=== PATIENT | female | born 1990 | race Two or more races ===

== ENCOUNTER 2019-09-25 11:40 | Emergency (ER) | payer MEDICAID ==
[~2019-09-25] VITALS: Ht 157.5 cm; Wt 57.6 kg
[2019-09-25 15:08] VITALS: BP 101/56
== END 2019-09-25 15:38 | disposition home or self-care (01) ==
LOC: ER 11:49
DX: O03.9 Complete or unspecified spontaneous abortion without complication (principal); Z3A.01 Less than 8 weeks gestation of pregnancy
CPT/HCPCS: 36415; 76801; 84702

== ENCOUNTER 2019-10-03 18:03 | Emergency (ER) | payer MEDICAID ==
[~2019-10-03] VITALS: Ht 157.5 cm; Wt 57.6 kg
[2019-10-03 20:50] VITALS: BP 114/64
== END 2019-10-03 21:11 | disposition home or self-care (01) ==
LOC: ER 18:03
DX: O9A.211 Injury, poisoning and certain other consequences of external causes complicating pregnancy, first trimester (principal); Z3A.08 8 weeks gestation of pregnancy
CPT/HCPCS: 36415; 84702

== ENCOUNTER 2024-02-09 10:40 | Emergency (ER) | payer MEDICAID ==
[~2024-02-09] VITALS: Ht 157.5 cm; Wt 61.5 kg
[2024-02-09 11:31] LABS: Basophils # (auto) 0 10 ^3/uL (0-0.2); Basophils % (auto) 0.3 % (0.0-2.0); Eosinophils # (auto) 0.1 10 ^3/uL (0-0.8); Eosinophils % (auto) 0.7 % (0.0-7.0); Hematocrit 36.7 % (36.0-46.0); Hemoglobin 12.6 g/dL (12.2-16.2); Lymphocytes # (auto) 1.9 10 ^3/uL (0.4-5.4); Lymphocytes % (auto) 23.4 % (10.0-50.0); Mean Corpuscular Hemoglobin 29.5 pg (28.0-32.0); Mean Corpuscular Hgb Conc. 34.3 g/dL (32.0-36.0); Monocytes # (auto) 0.5 10 ^3/uL (0-1.3); Monocytes % (auto) 6.7 % (0.0-12.0); Neutrophils # (auto) 5.6 10 ^3/uL (1.6-8.6); Neutrophils % (auto) 68.9 % (37.0-80.0); Red Blood Cells 4.27 10^6/uL (4.0-5.20); White Blood Cell 8.1 10^3/uL (4.4-10.8)
[2024-02-09 11:59] LABS: Urine Bacteria NONE SEEN /hpf (None Seen); Urine Blood Negative /uL (Negative); Urine Clarity HAZY (Clear); Urine Color Yellow (Yellow); Urine Mucus FEW (None Seen); Urine Protein, UAD Negative (Negative); Urine Specific Gravity 1.018 (1.001-1.035); Urine Urobilinogen Normal (Negative); Urine WBC 3 /hpf (0 - 5)
[2024-02-09 12:00] LABS: Alanine Aminotransferase 18 U/L (7-40); Albumin 4.2 g/dL (3.2-4.8); Alkaline Phosphatase 85 U/L (46-116); Anion Gap 8 (5-15); Aspartate Aminotransferase 12 U/L (13-40); BUN/Creatinine Ratio 10.9 (10.0-20.0); Blood Urea Nitrogen 6 mg/dL (9-23); Calcium 9.7 mg/dL (8.7-10.4); Carbon Dioxide 25 mmol/L (20-30); Chloride 103 mmol/L (98-107); Glucose 83 mg/dL (74-106); Lipase 35 U/L (12-53); Sodium 136 mmol/L (136-145)
[2024-02-09 12:01] LABS: Bilirubin, Total 0.4 mg/dL (0.2-1.0)
[2024-02-09] MEDS ORDERED: ZOFR4T PO (12:22)
[2024-02-09] MEDS ORDERED: NITR-87 PO (12:22)
[2024-02-09 12:43] VITALS: BP 111/68; PULSE 80; RESP 19; TEMP 98.2; O2SAT 96
== END 2024-02-09 12:44 | disposition home or self-care (01) ==
LOC: ER 10:40
DX: O20.0 Threatened abortion (principal); R10.2 Pelvic and perineal pain; O23.41 Unspecified infection of urinary tract in pregnancy, first trimester; N39.0 Urinary tract infection, site not specified; Z3A.11 11 weeks gestation of pregnancy
CPT/HCPCS: 36415; 76705; 76801; 80053; 81001; 83690; 84702; 85025

== ENCOUNTER 2024-04-18 08:14 | Emergency (ER) | payer MEDICAID ==
[~2024-04-18] VITALS: Ht 157.5 cm; Wt 62.3 kg
[~2024-04-18 08:14] MED LIST: NITR-87 PO; ZOFR4T PO
[2024-04-18] MEDS ORDERED: DOCU-94 PO (12:27)
[2024-04-18] MEDS ORDERED: [UNRECOGNIZED DRUG - CODE] EX (12:27)
[2024-04-18 13:24] VITALS: BP 102/54; PULSE 85; RESP 20; TEMP 98.4; O2SAT 97
== END 2024-04-18 13:26 | disposition home or self-care (01) ==
LOC: ER 08:14
DX: O22.42 Hemorrhoids in pregnancy, second trimester (principal); O26.892 Other specified pregnancy related conditions, second trimester; K59.00 Constipation, unspecified; Z3A.20 20 weeks gestation of pregnancy; Z87.442 Personal history of urinary calculi
CPT/HCPCS: 76805

== ENCOUNTER → 2024-06-05 | Outpatient (CLI) | payer MEDICAID ==
[~2024-06-05] MED LIST changes: +DOCU-94 PO; +[UNRECOGNIZED DRUG - CODE] EX
[2024-06-05 10:36] LABS: Basophils # (auto) 0 10 ^3/uL (0-0.2); Basophils % (auto) 0.4 % (0.0-2.0); Eosinophils # (auto) 0.1 10 ^3/uL (0-0.8); Eosinophils % (auto) 0.8 % (0.0-7.0); Hematocrit 31.7 % (36.0-46.0); Lymphocytes % (auto) 20.5 % (10.0-50.0); Mean Corpuscular Hemoglobin 29.8 pg (28.0-32.0); Mean Corpuscular Hgb Conc. 34.7 g/dL (32.0-36.0); Monocytes # (auto) 0.7 10 ^3/uL (0-1.3); Monocytes % (auto) 7.8 % (0.0-12.0); Neutrophils # (auto) 6.7 10 ^3/uL (1.6-8.6); Neutrophils % (auto) 70.5 % (37.0-80.0); Nucleated Red Blood Cells % 0.1 %; Red Blood Cells 3.69 10^6/uL (4.0-5.20); Red Cell Distribution Width 13.2 % (11.8-14.3); White Blood Cell 9.6 10^3/uL (4.4-10.8)
[2024-06-05 11:00] LABS: Alanine Aminotransferase 17 U/L (7-40); Albumin 3.9 g/dL (3.2-4.8); Alkaline Phosphatase 99 U/L (46-116); Anion Gap 6 (5-15); Aspartate Aminotransferase 14 U/L (13-40); BUN/Creatinine Ratio 14.3 (10.0-20.0); Blood Urea Nitrogen 7 mg/dL (9-23); Calcium 9.1 mg/dL (8.7-10.4); Carbon Dioxide 24 mmol/L (20-30); Chloride 106 mmol/L (98-107); Glucose 85 mg/dL (74-106); Potassium 4.1 mmol/L (3.5-5.1); Sodium 136 mmol/L (136-145)
[2024-06-05 11:01] LABS: Bilirubin, Total 0.3 mg/dL (0.2-1.0); Total Protein 6.9 g/dL (5.7-8.2)
[2024-06-06 07:07] LABS: RPR Non Reactive (Non Reactive)
[2024-06-06 13:07] LABS: Chlamydia Trachomatis, NAA Negative (Negative); Neisseria gonorrhoeae, NAA Negative (Negative)
== END | disposition home or self-care (01) ==
LOC: LAB 10:00
PROVIDERS: ATTEND Obstetrics & Gynecology
DX: Z34.80 Encounter for supervision of other normal pregnancy, unspecified trimester (principal); Z3A.00 Weeks of gestation of pregnancy not specified
CPT/HCPCS: 36415; 80053; 82951; 83036; 85025; 86592; 86850; 86900; 86901

== ENCOUNTER 2024-08-16 02:39 | Inpatient (IN) | payer MEDICAID ==
[~2024-08-16] VITALS: Ht 157.5 cm; Wt 63.5 kg
[2024-08-16] MEDS ORDERED: LIDOCAINE 2%HCL (LOCAL ANESTH.) INJ 20ML MDV IJ PRN (04:30)
[2024-08-16] MEDS ORDERED: BUTORPHANOL TARTRATE 2 MG/1 ML VIAL IV PRN ×2 (04:30)
[2024-08-16 05:05] LABS: Basophils # (auto) 0 10 ^3/uL (0-0.2); Basophils % (auto) 0.2 % (0.0-2.0); Eosinophils # (auto) 0 10 ^3/uL (0-0.8); Eosinophils % (auto) 0.2 % (0.0-7.0); Hematocrit 34.3 % (36.0-46.0); Hemoglobin 11.8 g/dL (12.2-16.2); Lymphocytes # (auto) 1.6 10 ^3/uL (0.4-5.4); Lymphocytes % (auto) 16.5 % (10.0-50.0); Mean Corpuscular Hemoglobin 29.6 pg (28.0-32.0); Mean Corpuscular Hgb Conc. 34.4 g/dL (32.0-36.0); Monocytes # (auto) 0.7 10 ^3/uL (0-1.3); Monocytes % (auto) 6.8 % (0.0-12.0); Neutrophils # (auto) 7.4 10 ^3/uL (1.6-8.6); Neutrophils % (auto) 76.3 % (37.0-80.0); Platelet Count (auto) 283 10^3/uL (140-450); Red Blood Cells 3.99 10^6/uL (4.0-5.20); Red Cell Distribution Width 15.8 % (11.8-14.3); White Blood Cell 9.7 10^3/uL (4.4-10.8)
[2024-08-16 05:10] LABS: Urine Amorphous Crystal FEW /hpf (None Seen); Urine Bacteria FEW /hpf (None Seen); Urine Blood Negative /uL (Negative); Urine Clarity Turbid (Clear); Urine Color Light-Yellow (Yellow); Urine Protein, UAD Negative (Negative); Urine Specific Gravity 1.009 (1.001-1.035); Urine Urobilinogen Normal (Negative); Urine WBC 4 /hpf (0 - 5); Urine pH 6.5 (5.0-9.0)
[2024-08-16] MEDS ORDERED: CARBOPROST TROMETHAMINE 250 MCG/1ML VIAL IM ONE (05:15)
[2024-08-16] MEDS ORDERED: METHYLERGONOVINE MALEATE 0.2 MG/ML AMP IM ONE (05:15)
[2024-08-16 05:19] LABS: INR 0.97 (0.9-1.15); Partial Thromboplastin Time 23.6 SEC (24.5-34.5); Prothrombin Time 10.3 sec (9.3-11.8)
[2024-08-16 05:23] LABS: Alanine Aminotransferase 66 U/L (7-40); Albumin 4.1 g/dL (3.2-4.8); Alkaline Phosphatase 275 U/L (46-116); Anion Gap 10 (5-15); Aspartate Aminotransferase 43 U/L (13-40); BUN/Creatinine Ratio 13.6 (10.0-20.0); Bilirubin, Total 0.5 mg/dL (0.2-1.0); Blood Urea Nitrogen 9 mg/dL (9-23); Calcium 9.4 mg/dL (8.7-10.4); Carbon Dioxide 21 mmol/L (20-30); Chloride 105 mmol/L (98-107); Glucose 86 mg/dL (74-106); Potassium 3.7 mmol/L (3.5-5.1); Sodium 136 mmol/L (136-145); Total Protein 7.1 g/dL (5.7-8.2)
[2024-08-16] MEDS: ONDANSETRON ODT 4 MG TAB PO PRN (05:26)
[2024-08-16 05:28] LABS: Amphetamine Screen, Urine Neg (NEGATIVE); Barbiturate Scree,Urine Neg (NEGATIVE); Benzodiazephine Screen, Urine Neg (NEGATIVE); Cannabinoid Screen, Urine Neg (NEGATIVE); Cocaine Screen, Urine Neg (NEGATIVE); Opiate Scree,Urine Neg (NEGATIVE); Phencyclidine Screen, Urine Neg (NEGATIVE)
[2024-08-16] MEDS ORDERED: PENICILLIN G POT 5MIL/D5 50ML 50 ML IV ONE (05:45)
[2024-08-16] MEDS: PHISODERM TOP SOLN 240ML BTL TOP PRN (06:30)
[2024-08-16] MEDS: LACT. RINGERS/OXYTOCIN 20UNITS 500 ML IV ONE ×2 (06:30)
[2024-08-16] MEDS: WITCH HAZEL-GLYCERIN PAD TOP PRN (06:31)
[2024-08-16] MEDS: DERMOPLAST 60ML BOTTLE TOP PRN (06:31)
[2024-08-16] MEDS: LACTATED RINGER'S 1,000 ML IV SCH (06:32)
[2024-08-16] MEDS ORDERED: ACETAMINOPHEN 325 MG TAB PO PRN (06:45)
[2024-08-16] MEDS ORDERED: ONDANSETRON ODT 4 MG TAB PO PRN (06:45)
[2024-08-16] MEDS: IBUPROFEN 600 MG TAB PO PRN (07:54)
[2024-08-16] MEDS ORDERED: PENICILLIN G POTASSIUM 2,500,000 UNITS in D5W 5% 50 ML IV SCH (10:00)
[2024-08-16 11:00] VITALS: BP 110/73; PULSE 58; RESP 18; TEMP 98.7; O2SAT 97
[2024-08-16 15:00] VITALS: BP 108/70; PULSE 56; RESP 18; TEMP 98.6; O2SAT 98
[2024-08-16 18:30] VITALS: BP 107/70; PULSE 59; RESP 16; TEMP 99.1; O2SAT 98
[2024-08-16] MEDS: DOCUSATE SOD 100 MG CAP PO PRN (21:33)
[2024-08-16 22:52] VITALS: BP 106/71; PULSE 68; RESP 16; TEMP 97.9; O2SAT 97
[2024-08-17] MEDS ORDERED: IBU600T PO (01:52)
[2024-08-17] MEDS ORDERED: PRENCAP69 PO (01:52)
[2024-08-17] MEDS ORDERED: DOCU-94 PO (01:52)
[2024-08-17] MEDS ORDERED: [UNRECOGNIZED DRUG - CODE] EX (01:52)
[2024-08-17] MEDS: RHO (D) IMMUNE GLOBULIN 300 MCG INJ IM ONE (02:56)
[2024-08-17 03:20] VITALS: BP 104/62; PULSE 64; RESP 16; TEMP 98.9; O2SAT 97
[2024-08-17] MEDS ORDERED: MEASLES, MUMPS & RUBELLA VAC(MMRII) 0.5ML SC ONE (07:00)
[2024-08-17 07:07] LABS: RPR Non Reactive (Non Reactive)
[2024-08-17 07:30] VITALS: BP 104/68; PULSE 71; RESP 16; TEMP 98.7; O2SAT 98
[2024-08-17 07:47] LABS: Hematocrit 31.8 % (36.0-46.0); Hemoglobin 10.6 g/dL (12.2-16.2); Mean Corpuscular Hemoglobin 29.4 pg (28.0-32.0); Mean Corpuscular Hgb Conc. 33.4 g/dL (32.0-36.0); Mean Corpuscular Volume 88.1 fL (80.0-100.0); Platelet Count (auto) 284 10^3/uL (140-450); Red Blood Cells 3.61 10^6/uL (4.0-5.20); Red Cell Distribution Width 15.9 % (11.8-14.3); White Blood Cell 12.7 10^3/uL (4.4-10.8)
[2024-08-17 07:51] LABS: Basophils % (manual) 0 (0.0-2.0); Blast Cells 0; Eosinophils % (manual) 0 (0-7); Metamyelocytes % 0; Myelocytes % 0; Promyelocytes % 0; Reactive Lymphocytes 0
[2024-08-17 08:41] LABS: Band Neutrophils % (manual) 9; Lymphocytes % (manual) 27 (10.0-50.0); Monocytes % (manual) 5 (0-12); Platelet Estimate Adequate
[2024-08-17 10:46] VITALS: BP 107/68; PULSE 69; RESP 16; TEMP 99.1
[2024-08-17 14:20] VITALS: BP 112/68; PULSE 88; RESP 18; TEMP 98.3; O2SAT 98
== END 2024-08-17 16:53 | disposition home or self-care (01) | DRG 560 ==
LOC: LDRP 02:39 → OBSVTOIN 04:19 → LDRP 08:31
PROVIDERS: ADMIT Nurse Practitioner Women's Health; ATTEND Nurse Practitioner Women's Health
PROC: 10E0XZZ Delivery of Products of Conception, External Approach (ICD-10-PCS; principal; 2024-08-16)
DX: O77.0 Labor and delivery complicated by meconium in amniotic fluid (principal); Z37.0 Single live birth; R71.0 Precipitous drop in hematocrit; O69.81X0 Labor and delivery complicated by cord around neck, without compression, not applicable or unspecified; Z3A.38 38 weeks gestation of pregnancy
CPT/HCPCS: 36415; 59025; 59409; 80053; 80307; 81001; 81002; 85007; 85025; 85027; 85610; 85730; 86592; 86803; 86850; 86870; 86900; 86901; 90384; 94760; 96360; 96361; 96365; 96366; 96372; G0378; J7060

== ENCOUNTER 2024-09-30 15:12 | Emergency (ER) | payer MEDICAID ==
[~2024-09-30] VITALS: Ht 157.5 cm; Wt 59.6 kg
[~2024-09-30 15:12] MED LIST changes: +IBU600T PO; -NITR-87 PO; +PRENCAP69 PO; -ZOFR4T PO
[2024-09-30 15:51] LABS: Basophils # (auto) 0.1 10 ^3/uL (0-0.2); Basophils % (auto) 0.6 % (0.0-2.0); Eosinophils # (auto) 0 10 ^3/uL (0-0.8); Eosinophils % (auto) 0.1 % (0.0-7.0); Hematocrit 39.7 % (36.0-46.0); Hemoglobin 13.6 g/dL (12.2-16.2); Lymphocytes # (auto) 1.4 10 ^3/uL (0.4-5.4); Lymphocytes % (auto) 7.7 % (10.0-50.0); Mean Corpuscular Hemoglobin 29.1 pg (28.0-32.0); Mean Corpuscular Hgb Conc. 34.2 g/dL (32.0-36.0); Mean Corpuscular Volume 85.2 fL (80.0-100.0); Monocytes # (auto) 0.9 10 ^3/uL (0-1.3); Monocytes % (auto) 4.6 % (0.0-12.0); Platelet Count (auto) 410 10^3/uL (140-450); Red Blood Cells 4.66 10^6/uL (4.0-5.20); Red Cell Distribution Width 15.8 % (11.8-14.3); White Blood Cell 18.4 10^3/uL (4.4-10.8)
[2024-09-30 15:55] LABS: Chloride 104 mmol/L (98-107); Potassium 3.7 mmol/L (3.5-5.1); Sodium 137 mmol/L (136-145)
[2024-09-30 15:56] LABS: Anion Gap 5 (5-15); Calcium 9.9 mg/dL (8.7-10.4); Carbon Dioxide 28 mmol/L (20-31)
[2024-09-30 16:01] LABS: BUN/Creatinine Ratio 16.4 (10.0-20.0); Blood Urea Nitrogen 11 mg/dL (9-23); Glucose 102 mg/dL (74-106)
[2024-09-30 16:43] VITALS: BP 129/69; PULSE 91; RESP 18; TEMP 98.8; O2SAT 98
--- NOTE | 2024-09-30 16:45 | ED.PDOC ---
GI ASSESSMENT HPI Comments A 34 YEAR OLD FEMALE PRESENTS TO THE ED WITH COMPLAINT OF MIDDLE ABDOMINAL PAIN WITH NAUSEA AND VOMITING. PATIENT STATES SHE HAS BEEN EXPERIENCING MIDDLE ABDOMINAL PAIN WITH NAUSEA AND VOMITING THAT STARTED TODAY. PATIENT DENIES FEVER, CHILLS, SHORTNESS OF BREATH, CHEST PAIN, HEADACHE, OR OTHER COMPLAINTS. NO OTHER SYMPTOMS OR MODIFYING FACTORS AT THIS TIME. PATIENT IS ALERT, ORIENTED X 4, AND HAS STEADY GAIT. Chief Complaint: Abdominal Pain Time Seen by MD: 15:32 Primary Care Provider: UNKNOWN Reviewed Notes: Nurses Notes, Medications, Allergies Allergies: Coded Allergies: NO KNOWN ALLERGIES (Unverified , 09/25/19) Home Meds Active Scripts Ibuprofen (Ibuprofen) 600 Mg Tab, 1 TAB PO TID, #20 TAB Prov:ZAID GEE 09/30/24 Sulfamethoxazole W/Trimethopri (Bactrim Ds Tablet) 1 Tab Tb, 1 TAB PO BID for 7 Days, #14 TAB Prov:ZAID GEE 09/30/24 Ondansetron Odt 4MG Tab (ZOFRAN PO) 4 Mg Tb, 4 MG PO BID, #14 TAB ODT TAB-DISSOLVE IN MOUTH, THEN SWALLOW Prov:ZAID GEE 09/30/24 Mv & Min W/Fe Polysac (VITAFOL-ONE) Cap, 1 CAP PO DAILY, #90 CAP 3 Refills Prov:SWETA MATIAS [facility] 08/17/24 Ibuprofen Micronized (MOTRIN TABLET) 600 Mg Tb, 600 MG PO Q6HP PRN for 20 Days, #80 TAB Prov:SWETA MATIAS [facility] 08/17/24 Witch Hermila (Hamamelis Virgini (Preparation H For Women) 20 % Pad, 20 % EX BID PRN for 30 Days, #60 PAD Prov:SWETA MATIAS [facility] 08/17/24 Docusate Sodium (Colace) 100 Mg Cap, 1 CAP PO BID PRN for 30 Days, #60 CAP 2 Refills Prov:SWETA MATIAS [facility] 08/17/24 Information Source: Patient Mode of Arrival: Ambulatory Timing: Hours Duration: Since onset, Hours Prehospital treatment: None Quality: Aching, Cramping Vomitus: Food Particles Stool: Normal Severity: Moderate Recent: None Recent Hx of: None Pain Location: Suprapubic, Other (MIDDLE ABDOMINAL PAIN) Modifying Factors: Nothing Associated sign and symptoms: Nausea, Vomiting, Abdominal Pain Past Medical History PAST MEDICAL HISTORY: Kidney Stones Surgical History: Denies all surgeries HOME INSURANCE AGENT History: No Pertinent HOME INSURANCE AGENT History Family History Family History: Reviewed,noncontributory to illness, Family hx of HTN Social History Smoker: Non-Smoker Alcohol: Occasionally Drugs: Denies Drug Use Lives In: Home Constitutional: reports: others (ANXIOUS ); denies: chills, diaphoresis, fatigue, fever, malaise, sweats, weakness EENTM: denies: blurred vision, double vision, ear bleeding, ear discharge, ear drainage, ear pain, ear ringing, eye pain, eye redness, hearing loss, mouth pain, mouth swelling, nasal discharge, nose bleeding, nose congestion, nose pain, photophobia, tearing, throat pain, throat swelling, voice changes, others Respiratory: denies: cough, hemoptysis, orthopnea, SOB at rest, shortness of breath, SOB with excertion, stridor, wheezing, others Cardiovascular: denies: chest pain, dizzy spells, diaphoresis, Dyspnea on exertion, edema, irregular heart beat, left arm pain, lightheadedness, palpitations, PND, syncope, others Gastrointestinal: reports: abdominal pain, nausea, vomiting; denies: abdomen distended, blood streaked bowels, constipated, diarrhea, dysphagia, difficulty swallowing, hematemesis, melena, poor appetite, poor fluid intake, rectal bleeding, rectal pain, others Genitourinary: denies: abnormal vagina bleeding, burning, dyspareunia, dysuria, flank pain, frequency, hematuria, incontinence, pain, , vagina discharge, urgency, others Neurological: denies: dizziness, fainting, headache, left sided numbness, left sided weakness, numbness, paresthesia, pre-existing deficit, right sided numbness, right sided weakness, seizure, speech problems, tingling, tremors, weakness, others Musculoskeletal: denies: back pain, gout, joint pain, joint swelling, muscle pain, muscle stiffness, neck pain, others Integumetry: denies: bruises, change in color, change in hair/nails, dryness, laceration, lesions, lumps, rash, wounds, others Allergic/Immunocompromised: denies: Difficulty Healing, Frequent Infections, Hives, Itching, others Hematologic/Lymphatic: denies: anemia, blood clots, easy bleeding, easy bruising, swollen glands, others Endocrine: denies: excessive hunger, excessive sweating, excessive thirst, excessive urination, flushing, intolerance to cold, intolerance to heat, unexplained weight gain, unexplained weight loss, others Psychiatric: denies: anxiety, bipolar disorder, depression, hopeless, panic disorder, schizophrenia, sleepless, suicidal, others All Other Systems: Reviewed and Negative Physical Exam General Appearance: Mild Distress, Normal, Other (ANXIOUS ) HEENT: Normal ENT Inspection, PERRL/EOMI, Pharynx Normal, TMs Normal Neck: Full Range of Motion, Non-Tender, Normal, Normal Inspection Respiratory: Chest Non-Tender, Lungs Clear, No Accessory Muscle Use, No Respiratory Distress, Normal Breath Sounds Cardiovascular: No Edema, No JVD, No Murmur, No Gallop, Normal Peripheral Pulses, Regular Rate/Rhythm Breast Exam: Deferred Gastrointestinal: LLQ, No Organomegaly, No Pulsatile Mass, Normal Bowel Sounds, RLQ, Soft, Tenderness (LOWER ABD, NO GUARDING AND REBOUND TENDERNESS. ) Genitalia: Deferred Pelvic: Deferred, Normal External Exam, Tender Uterus Rectal: Deferred Extremities: No calf tenderness, Normal capillary refill, Normal inspection, Normal range of motion, Non-tender, No pedal edema Musculoskeletal : Apperance: Normal Neurologic: Alert, sweet potato disintegrator II-XII nml as Tested, No Motor Deficits, Normal Affect, Normal Mood, No Sensory Deficits Cerebellar Function: Normal Reflexes: Normal Skin: Dry, Normal Color, Warm Peripheral Pulses: 2+ carotid (R), 2+ carotid (L) Lymphatic: No Adenopathy Was a procedure done? Was a procedure done?: No GI differential Dx Differential Diagnosis: Appendicitis, Bowel Obstruction, Diverticular disease, Gastritis/PUD, UTI, Urolithiasis, Dehydration, Food Poisoning, Viral, Kidney Stone X-Ray, Labs, Meds, VS Vital Signs Date Time Temp Pulse Resp B/P (MAP) Pulse Ox O2 Delivery O2 Flow Rate FiO2 09/30/24 16:43 91 18 98 Room Air 09/30/24 16:43 98.8 91 18 129/69 (89) 98 98.8 09/30/24 16:06 98.8 91 18 129/69 (89) 98 Lab Test 09/30/24 16:50 09/30/24 15:42 Range/Units Urine Color Light-yellow Yellow Urine Clarity Turbid H Clear Urine pH 7.5 5.0-9.0 Urine Specific [place] 1.023 1.001-1.035 Urine Protein Trace H Negative Urine Ketones 2+ H Negative Urine Blood Negative Negative /uL Urine Nitrite Negative Negative Urine Bilirubin Negative Negative Urine Urobilinogen Normal Negative mg/dL Urine Leukocyte Esterase 3+ Negative /uL Urine RBC 3 0 - 4 /hpf Urine WBC 25 0 - 5 /hpf Urine Squamous Epithelial Cells Mod <5 /hpf Urine Amorphous Crystals Few None Seen /hpf Urine Bacteria Few H None Seen /hpf Urine Mucus Few None Seen Urine Glucose Normal Normal mg/dL Urine Test Negative Negative White Blood Count 18.4 H 4.4-10.8 10^3/uL Red Blood Count 4.66 4.0-5.20 10^6/uL Hemoglobin 13.6 12.2-16.2 g/dL Hematocrit 39.7 36.0-46.0 % Mean Corpuscular Volume 85.2 80.0-100.0 fL Mean Corpuscular Hemoglobin 29.1 28.0-32.0 pg Mean Corpuscular Hemoglobin Concent 34.2 32.0-36.0 g/dL Red Cell Distribution Width 15.8 H 11.8-14.3 % Platelet Count 410 140-450 10^3/uL Mean Platelet Volume 7.4 6.9-10.8 fL Neutrophils (%) (Auto) 87.0 H 37.0-80.0 % Lymphocytes (%) (Auto) 7.7 L 10.0-50.0 % Monocytes (%) (Auto) 4.6 0.0-12.0 % Eosinophils (%) (Auto) 0.1 0.0-7.0 % Basophils (%) (Auto) 0.6 0.0-2.0 % Neutrophils # (Auto) 16.0 H 1.6-8.6 10 ^3/uL Lymphocytes # (Auto) 1.4 0.4-5.4 10 ^3/uL Monocytes # (Auto) 0.9 0-1.3 10 ^3/uL Eosinophils # (Auto) 0 0-0.8 10 ^3/uL Basophils # (Auto) 0.1 0-0.2 10 ^3/uL Nucleated Red Blood Cells 0.0 % Sodium Level 137 136-145 mmol/L Potassium Level 3.7 3.5-5.1 mmol/L Chloride Level 104 98-107 mmol/L Carbon Dioxide Level 28 20-31 mmol/L Anion Gap 5 5-15 Blood Urea Nitrogen 11 9-23 mg/dL Creatinine 0.67 0.550-1.02 mg/dL Glomerular Filtration Rate Calc 118 >90 mL/min BUN/Creatinine Ratio 16.4 10.0-20.0 Serum Glucose 102 74-106 mg/dL Calcium Level 9.9 8.7-10.4 mg/dL Current Medications Medications (Trade) Dose Ordered Sig/Jorge Luis Route Start Time Stop Time Status Last Admin Sodium Chloride 1,000 ml @ 1,000 mls/hr Q1H ONCE IV 09/30/24 16:45 09/30/24 17:44 DC 09/30/24 16:54 Ondansetron HCl (Zofran) 4 mg ONCE ONCE IV 09/30/24 16:45 09/30/24 16:46 DC 09/30/24 16:53 Ceftriaxone Sodium 50 ml @ 100 mls/hr ONCE ONCE IV 09/30/24 17:45 09/30/24 18:14 DC 09/30/24 17:55 Exam: CT CT AB PEL WITH IV CON ONLY History: MID ABD PAIN WITH N/V AND CRAMPING Comparison Study: None available at time of dictation. TECHNIQUE: Multidetector CT of the abdomen was performed from lung bases to pubic symphysis. Imaging was performed without IV contrast. Axial, coronal and sagittal multiplanar reformats were obtained from the axial data set by the technologist. Radiation Dose Information: CT Dose: CTDI volume is 9.61 mGy. Dose-length product is 450.6 mGy*cm Omnipaque 300: 100 mL FINDINGS: Evaluation of solid organs is limited due to lack of intravenous contrast use. Findings: Lung Bases: No acute or significant lung base finding. Normal heart size. No pleural or pericardial effusion. Liver: The liver is normal in size. No focal lesions. Gallbladder and Biliary Tree: Unremarkable Spleen: Unremarkable Pancreas: The pancreas is grossly normal in appearance. Adrenal Glands: Unremarkable Kidneys: Kidneys are grossly normal without calculi or hydronephrosis. Bladder: Grossly unremarkable for degree of distention. Bowel: The stomach is grossly normal in appearance. Small bowel and colon are normal in caliber and distribution. The appendix is not visualized; however, no secondary findings of acute appendicitis identified. Ascites: Absent Lymphadenopathy: No mesenteric, retroperitoneal or periportal lymphadenopathy. Abdominal Wall and Mesentery: Unremarkable. Vasculature: The visualized abdominal aorta is normal in size and caliber. Evaluation of abdominal and pelvic vessels is limited due to lack of intravenous contrast. Pelvic Organs: Uterus measures 10.3 x 5.1 cm. There is no free fluid. There is fluid in the endometrial canal. Musculoskeletal: No aggressive focal bony lesions, acute fractures or dislocation. Soft tissues: Unremarkable IMPRESSION: 1. Uterus is enlarged consistent with uterus. 2. There is fluid in the endometrial canal. 3. There is no free air or fluid in the pelvis. Radiation optimization: All CT scans at this facility use at least one of these dose optimization techniques: automated exposure control mA and/or kV adjustment per patient size (includes targeted exams where dose is matched to clinical indication) or iterative reconstruction. HS:Y ATED BY: EVE PIRES Jr., DO DICTATED DATE/TIME: 09/30/241745 SIGNED BY: EVE PIRES Jr., SIGNED DATE/TIME: 09/30/241745 CC: X-Ray, Labs, Meds, VS Comment LABS ORDERED: CBC, BMP, UA REVIEWED AND INTERPRETED RESULTS: WBC 18.4, KET 2+, LEUKO 3+ TREATMENT: NS 1 L IV, ZOFRAN 4 MG IV , ROCEPHIN 1 G IV, TORADOL 30MG IVP Images Reviewed?: Images reviewed and evaluated by me Time of 1ST Reevaluation: 18:30 Reevaluation 1ST: Improved Patient Education/Counseling: Diagnosis, Treatment, Need For Follow Up Family Education/Counseling: Diagnosis, Treatment, Need For Follow Up Medical Screening: No EMC Exist At This Time Departure 1 Departure Time of Disposition: 18:30 Impression: Primary Impression: Acute UTI (urinary tract infection) Additional Impression: uterine hypertrophy Disposition: 01 HOME / SELF CARE / HOMELESS Condition: Stable Additional Instructions: FOLLOW-UP WITH PCP IN 1 TO 2 DAYS. TAKE MEDICATIONS PRESCRIBED. RETURN TO ED FOR ANY NEW OR WORSENING SYMPTOMS. e-Prescriptions Ibuprofen (Ibuprofen) 600 Mg Tab 1 TAB PO TID, #20 TAB Prov: ZAID GEE 09/30/24 Sulfamethoxazole W/Trimethopri (Bactrim Ds Tablet) 1 Tab Tb 1 TAB PO BID for 7 Days, #14 TAB Prov: ZAID GEE 09/30/24 Ondansetron Odt 4MG Tab (ZOFRAN PO) 4 Mg Tb 4 MG PO BID, #14 TAB ODT TAB-DISSOLVE IN MOUTH, THEN SWALLOW Prov: ZAID GEE 09/30/24 Discharged With: Self, Relative Critical Care Note Critical Care Time?: No Stability Stability form required: No I personally scribed for ZAID GEE ([email or web address]) on 09/30/24 at 16:45. Electronically submitted by Qasim Patel ([email or web address]). I personally scribed for ZAID GEE ([email or web address]) on 09/30/24 at 17:47. Electronically submitted by Qasim Patel ([employer]). I personally scribed for ZAID GEE ([email or web address]) on 09/30/24 at 17:54. Electronically submitted by Qasim Patel ([employer]). ZAID GEE Sep 30, 2024 16:45
[2024-09-30] MEDS: ONDANSETRON HCL 4 MG/2 ML VIAL IV ONE (16:53)
[2024-09-30] MEDS: SODIUM CHLORIDE 0.9% 1,000 ML IV ONE (16:54)
[2024-09-30 17:07] LABS: Urine Amorphous Crystal FEW /hpf (None Seen); Urine Bacteria FEW /hpf (None Seen); Urine Blood Negative /uL (Negative); Urine Clarity Turbid (Clear); Urine Color Light-Yellow (Yellow); Urine Mucus FEW (None Seen); Urine Protein, UAD TRACE (Negative); Urine Specific Gravity 1.023 (1.001-1.035); Urine Urobilinogen Normal (Negative); Urine WBC 25 /hpf (0 - 5); Urine pH 7.5 (5.0-9.0)
[2024-09-30] MEDS: IOHEXOL 300 MG/ML 100ML BOTTLE IJ ONE (17:17)
--- NOTE | 2024-09-30 17:49 | DVH ---
Exam: CT CT AB PEL WITH IV CON ONLY History: MID ABD PAIN WITH N/V AND CRAMPING Comparison Study: None available at time of dictation. TECHNIQUE: Multidetector CT of the abdomen was performed from lung bases to pubic symphysis. Imaging was performed without IV contrast. Axial, coronal and sagittal multiplanar reformats were obtained fr om the axial data set by the technologist. Radiation Dose Information: CT Dose: CTDI volume is 9.61 mGy. Dose-length product is 450.6 mGy*cm Omnipaque 300: 100 mL FINDINGS: Evaluation of solid organs is limited due to lack of intravenous contrast use. Findings: Lung Bases: No acute or significant lung base finding. Normal heart size. No pleural or pericardial effusion. Liver: The liver is normal in size. No focal lesions. Gallbladder and Biliary Tree: Unremarkable Spleen: Unremarkable Pancreas: The pancreas is grossly normal in appearance. Adrenal Glands: Unremarkable Kidneys: Kidneys are grossly normal without calculi or hydronephrosis. Bladder: Grossly unremarkable for degree of distention. Bowel: The stomach is grossly normal in appearance. Small bowel and colon are normal in caliber and d istribution. The appendix is not visualized; however, no secondary findings of acute appendicitis id entified. Ascites: Absent Lymphadenopathy: No mesenteric, retroperitoneal or periportal lymphadenopathy. Abdominal Wall and Mesentery: Unremarkable. Vasculature: The visualized abdominal aorta is normal in size and caliber. Evaluation of abdominal a nd pelvic vessels is limited due to lack of intravenous contrast. Pelvic Organs: Uterus measures 10.3 x 5.1 cm. There is no free fluid. There is fluid in the endomet rial canal. Musculoskeletal: No aggressive focal bony lesions, acute fractures or dislocation. Soft tissues: Unremarkable IMPRESSION: 1. Uterus is enlarged consistent with uterus. 2. There is fluid in the endometrial canal. 3. There is no free air or fluid in the pelvis. Radiation optimization: All CT scans at this facility use at least one of these dose optimization galina hniques: automated exposure control mA and/or kV adjustment per patient size (includes targeted exam s where dose is matched to clinical indication) or iterative reconstruction. HS:Y
[2024-09-30] MEDS: cefTRIAXone 1GM/50ML D5W 50 ML IV ONE (17:55)
[2024-09-30] MEDS ORDERED: IBUP-1454 PO (18:25)
[2024-09-30] MEDS ORDERED: BACDST PO (18:25)
[2024-09-30] MEDS ORDERED: ZOFR4T PO (18:25)
[2024-09-30] MEDS: KETOROLAC TROMETH 60MG/2ML VIAL IM ONE (18:33)
== END 2024-09-30 18:43 | disposition home or self-care (01) ==
LOC: ER 15:12
DX: N39.0 Urinary tract infection, site not specified (principal); N85.2 Hypertrophy of uterus; Z79.1 Long term (current) use of non-steroidal anti-inflammatories (NSAID); Z87.442 Personal history of urinary calculi; Z32.02 Encounter for pregnancy test, result negative
CPT/HCPCS: 36415; 74177; 80048; 81001; 81025; 85025; 96361; 96365; 96372; 96375; 99285; J0696; J1885; J2405; J7030; Q9967

== ENCOUNTER 2025-01-01 07:44 | Emergency (ER) | payer MEDICAID ==
[~2025-01-01] VITALS: Ht 167.6 cm; Wt 61.1 kg
[~2025-01-01 07:44] MED LIST changes: +BACDST PO; +IBUP-1454 PO; +ZOFR4T PO
[2025-01-01 08:36] LABS: Basophils # (auto) 0.1 10 ^3/uL (0-0.2); Basophils % (auto) 0.8 % (0.0-2.0); Eosinophils # (auto) 0 10 ^3/uL (0-0.8); Eosinophils % (auto) 0.1 % (0.0-7.0); Hematocrit 41.1 % (36.0-46.0); Hemoglobin 13.9 g/dL (12.2-16.2); Mean Corpuscular Hemoglobin 29.4 pg (28.0-32.0); Mean Corpuscular Hgb Conc. 33.8 g/dL (32.0-36.0); Mean Corpuscular Volume 87.1 fL (80.0-100.0); Monocytes # (auto) 0.4 10 ^3/uL (0-1.3); Monocytes % (auto) 3.2 % (0.0-12.0); Neutrophils # (auto) 11.1 10 ^3/uL (1.6-8.6); Neutrophils % (auto) 87.9 % (37.0-80.0); Platelet Count (auto) 418 10^3/uL (140-450); Red Blood Cells 4.72 10^6/uL (4.0-5.20); Red Cell Distribution Width 13.4 % (11.8-14.3); White Blood Cell 12.6 10^3/uL (4.4-10.8)
[2025-01-01 09:02] LABS: Chloride 105 mmol/L (98-107); Potassium 3.7 mmol/L (3.5-5.1); Sodium 139 mmol/L (136-145)
[2025-01-01 09:03] LABS: Anion Gap 7 (5-15); Carbon Dioxide 27 mmol/L (20-31)
[2025-01-01 09:08] LABS: BUN/Creatinine Ratio 12.8 (10.0-20.0); Blood Urea Nitrogen 10 mg/dL (9-23); Glucose 114 mg/dL (74-106)
[2025-01-01 09:09] LABS: Urine Bacteria FEW /hpf (None Seen); Urine Blood Negative /uL (Negative); Urine Clarity Clear (Clear); Urine Color Yellow (Yellow); Urine Protein, UAD Negative (Negative); Urine Squamous Epithelial Cell FEW /hpf (<5); Urine Urobilinogen Normal (Negative); Urine WBC 7 /HPF (0-5); Urine pH 6.5 (5.0-9.0)
[2025-01-01] MEDS: SODIUM CHLORIDE 0.9% 1,000 ML IV ONE ×2 (09:46→11:59)
[2025-01-01] MEDS: ONDANSETRON HCL 4 MG/2 ML VIAL IV ONE (09:51)
[2025-01-01] MEDS: MORPHINE SULFATE 4 MG/ML SYR/VIAL IV ONE (09:52)
[2025-01-01] MEDS: IOHEXOL 300 MG/ML 100ML BOTTLE IJ ONE (10:21)
--- NOTE | 2025-01-01 10:24 | DVH ---
Exam: CT CT AB PEL WITH IV CON ONLY History: rlq pain TECHNIQUE: A digital port purser image was obtained. During the uneventful, intravenous administration of c ontrast material, multislice data acquisition was obtained through the abdomen and pelvis. The data s et was subsequently reconstructed into axial images. Images were reviewed on a work station using a c ombination of axial and multiplanar using a variety of window levels and settings. 100 cc of Omnipaqu e 300 contrast was injected intravenously. All CT scans at this medical facility are performed using dose modulation techniques as appropriate t o a performed exam including the following:Automated exposure control was utilized; adjustment of the MA and/or KV according to patient size; and use of iterative reconstruction technique. Radiation Dose Information: CT Dose: CTDI volume is 8 mGy. Dose-length product is 446 mGy*cm Comparison: None FINDINGS: There is a 4 mm calculus in the distal right ureter proximal to the UVJ. There is right hydroureteron ephrosis. There is no evidence of a renal calculus. There is no left hydronephrosis. Theliver, gallbladder, pancreas, adrenal glands, and spleen appear within normal limits. There is no evidence of abdominal lymphadenopathy. There is no free fluid or free air. The stomach grossly appears unremarkable. The small and large bowel loops demonstrate normal caliber. The abdominal aorta and IVC appear within normal limits. The bladder appears within normal limits the degree of distention. Pelvic organs is unremarkable. Th ere is no evidence of a pelvic mass or lymphadenopathy. There is no free fluid collection. Lung bases are clear. There is no acute osseous abnormality. IMPRESSION: 1. 4 mm calculus in the distal right ureter with right hydroureteronephrosis. HS:Y
--- NOTE | 2025-01-01 10:46 | ED.PDOC ---
GI ASSESSMENT HPI Comments 34 year old female presents to the ED with chief complaint of abdominal pain. Patient reports that she has been experiencing RLQ abdominal pain with associated nausea, vomiting, and lightheadedness for the past 5 hours. Patient relays that she has had similar symptoms in the past around 2 months ago, but was only diagnosed with a UTI. Patient denies any diarrhea, fever, chills, dizziness, dysuria, or hematuria. Chief Complaint: Abdominal Pain Time Seen by MD: 10:44 Primary Care Provider: UNKNOWN Reviewed Notes: Nurses Notes, Medications, Allergies Allergies: Coded Allergies: NO KNOWN ALLERGIES (Unverified , 09/25/19) Home Meds Active Scripts Ibuprofen (Ibuprofen) 600 Mg Tab, 1 TAB PO TID, #20 TAB Prov:ZAID GEE 09/30/24 Sulfamethoxazole W/Trimethopri (Bactrim Ds Tablet) 1 Tab Tb, 1 TAB PO BID for 7 Days, #14 TAB Prov:ZAID GEE 09/30/24 Ondansetron Odt 4MG Tab (ZOFRAN PO) 4 Mg Tb, 4 MG PO BID, #14 TAB ODT TAB-DISSOLVE IN MOUTH, THEN SWALLOW Prov:ZAID GEE 09/30/24 Mv & Min W/Fe Polysac (VITAFOL-ONE) Cap, 1 CAP PO DAILY, #90 CAP 3 Refills Prov:SWETA [facility] 08/17/24 Ibuprofen Micronized (MOTRIN TABLET) 600 Mg Tb, 600 MG PO Q6HP PRN for 20 Days, #80 TAB Prov:SWETA MATIAS [facility] 08/17/24 Witch Hermila (Hamamelis Virgini (Preparation H For Women) 20 % Pad, 20 % EX BID PRN for 30 Days, #60 PAD Prov:SWETA [facility] 08/17/24 Docusate Sodium (Colace) 100 Mg Cap, 1 CAP PO BID PRN for 30 Days, #60 CAP 2 Refills Prov:SWETA [facility]IAS [facility] 08/17/24 Information Source: Patient Mode of Arrival: Ambulatory Timing: Hours Duration: Since onset Prehospital treatment: None Quality: Sharp Vomitus: Watery Stool: Normal Severity: Moderate Recent: None Recent Hx of: None Pain Location: RLQ Modifying Factors: Nothing Associated sign and symptoms: Nausea, Vomiting, Abdominal Pain Past Medical History PAST MEDICAL HISTORY: Kidney Stones Surgical History: Denies all surgeries [employer] History: No Pertinent [employer] History Family History Family History: Reviewed,noncontributory to illness, Family hx of HTN Social History Smoker: Non-Smoker Alcohol: Occasionally Drugs: Denies Drug Use Lives In: Home Constitutional: denies: chills, diaphoresis, fatigue, fever, malaise, sweats, weakness, others EENTM: denies: blurred vision, double vision, ear bleeding, ear discharge, ear drainage, ear pain, ear ringing, eye pain, eye redness, hearing loss, mouth pain, mouth swelling, nasal discharge, nose bleeding, nose congestion, nose pain, photophobia, tearing, throat pain, throat swelling, voice changes, others Respiratory: denies: cough, hemoptysis, orthopnea, SOB at rest, shortness of breath, SOB with excertion, stridor, wheezing, others Cardiovascular: reports: lightheadedness; denies: chest pain, dizzy spells, diaphoresis, Dyspnea on exertion, edema, irregular heart beat, left arm pain, palpitations, PND, syncope, others Gastrointestinal: reports: abdominal pain, nausea, vomiting; denies: abdomen distended, blood streaked bowels, constipated, diarrhea, dysphagia, difficulty swallowing, hematemesis, melena, poor appetite, poor fluid intake, rectal bleeding, rectal pain, others Genitourinary: denies: abnormal vagina bleeding, burning, dyspareunia, dysuria, flank pain, frequency, hematuria, incontinence, pain, , vagina discharge, urgency, others Neurological: denies: dizziness, fainting, headache, left sided numbness, left sided weakness, numbness, paresthesia, pre-existing deficit, right sided numbness, right sided weakness, seizure, speech problems, tingling, tremors, weakness, others Musculoskeletal: denies: back pain, gout, joint pain, joint swelling, muscle pain, muscle stiffness, neck pain, others Integumetry: denies: bruises, change in color, change in hair/nails, dryness, laceration, lesions, lumps, rash, wounds, others Allergic/Immunocompromised: denies: Difficulty Healing, Frequent Infections, Hives, Itching, others Hematologic/Lymphatic: denies: anemia, blood clots, easy bleeding, easy bruising, swollen glands, others Endocrine: denies: excessive hunger, excessive sweating, excessive thirst, excessive urination, flushing, intolerance to cold, intolerance to heat, unexplained weight gain, unexplained weight loss, others Psychiatric: denies: anxiety, bipolar disorder, depression, hopeless, panic disorder, schizophrenia, sleepless, suicidal, others All Other Systems: Reviewed and Negative Physical Exam General Appearance: No Apparent Distress, Normal HEENT: Normal ENT Inspection, PERRL/EOMI Neck: Full Range of Motion, Non-Tender, Normal, Normal Inspection Respiratory: Chest Non-Tender, Lungs Clear, No Accessory Muscle Use, No Respiratory Distress, Normal Breath Sounds Cardiovascular: No Edema, No JVD, No Murmur, No Gallop, Normal Peripheral Pulses, Regular Rate/Rhythm Breast Exam: Deferred Gastrointestinal: No Organomegaly, No Pulsatile Mass, Normal Bowel Sounds, Soft, Tenderness (RLQ tenderness) Genitalia: Deferred Pelvic: Deferred Rectal: Deferred Extremities: No calf tenderness, Normal capillary refill, Normal inspection, Normal range of motion, Non-tender, No pedal edema Musculoskeletal : Apperance: Normal Neurologic: Alert, route sales specialist II-XII nml as Tested, No Motor Deficits, Normal Affect, Normal Mood, No Sensory Deficits Cerebellar Function: Normal Reflexes: Normal Skin: Dry, Normal Color, Warm Lymphatic: No Adenopathy Was a procedure done? Was a procedure done?: No GI differential Dx Differential Diagnosis: Cholecystitis, Urinary Obstruction, UTI, Urolithiasis, Dehydration X-Ray, Labs, Meds, VS Vital Signs Date Time Temp Pulse Resp B/P (MAP) Pulse Ox O2 Delivery O2 Flow Rate FiO2 01/01/25 10:22 86 18 128/77 01/01/25 09:52 90 16 119/73 01/01/25 09:51 98.7 90 16 119/73 (88) 98 98.7 01/01/25 09:51 90 16 98 Room Air 01/01/25 08:01 98.7 83 17 114/70 (85) 96 Lab Test 01/01/25 08:20 01/01/25 08:03 Range/Units White Blood Count 12.6 H 4.4-10.8 10^3/uL Red Blood Count 4.72 4.0-5.20 10^6/uL Hemoglobin 13.9 12.2-16.2 g/dL Hematocrit 41.1 36.0-46.0 % Mean Corpuscular Volume 87.1 80.0-100.0 fL Mean Corpuscular Hemoglobin 29.4 28.0-32.0 pg Mean Corpuscular Hemoglobin Concent 33.8 32.0-36.0 g/dL Red Cell Distribution Width 13.4 11.8-14.3 % Platelet Count 418 140-450 10^3/uL Mean Platelet Volume 7.5 6.9-10.8 fL Neutrophils (%) (Auto) 87.9 H 37.0-80.0 % Lymphocytes (%) (Auto) 8.0 L 10.0-50.0 % Monocytes (%) (Auto) 3.2 0.0-12.0 % Eosinophils (%) (Auto) 0.1 0.0-7.0 % Basophils (%) (Auto) 0.8 0.0-2.0 % Neutrophils # (Auto) 11.1 H 1.6-8.6 10 ^3/uL Lymphocytes # (Auto) 1.0 0.4-5.4 10 ^3/uL Monocytes # (Auto) 0.4 0-1.3 10 ^3/uL Eosinophils # (Auto) 0 0-0.8 10 ^3/uL Basophils # (Auto) 0.1 0-0.2 10 ^3/uL Nucleated Red Blood Cells 0.0 % Sodium Level 139 136-145 mmol/L Potassium Level 3.7 3.5-5.1 mmol/L Chloride Level 105 98-107 mmol/L Carbon Dioxide Level 27 20-31 mmol/L Anion Gap 7 5-15 Blood Urea Nitrogen 10 9-23 mg/dL Creatinine 0.78 0.550-1.02 mg/dL Glomerular Filtration Rate Calc 103 >90 mL/min BUN/Creatinine Ratio 12.8 10.0-20.0 Serum Glucose 114 H 74-106 mg/dL Calcium Level 10.0 8.7-10.4 mg/dL Urine Color Yellow Yellow Urine Clarity Clear Clear Urine pH 6.5 5.0-9.0 Urine Specific [place] 1.020 1.001-1.035 Urine Protein Negative Negative Urine Ketones Negative Negative Urine Blood Negative Negative /uL Urine Nitrite Negative Negative Urine Bilirubin Negative Negative Urine Urobilinogen Normal Negative mg/dL Urine Leukocyte Esterase 2+ Negative /uL Urine RBC 1 0 - 4 /hpf Urine Microscopic WBC 7 H 0-5 /HPF Urine Squamous Epithelial Cells Few <5 /hpf Urine Bacteria Few H None Seen /hpf Urine Glucose Normal Normal mg/dL Urine Test Negative Negative Current Medications Medications (Trade) Dose Ordered Sig/Jorge Luis Route Start Time Stop Time Status Last Admin Sodium Chloride 1,000 ml @ 1,000 mls/hr Q1H ONCE IV 01/01/25 08:15 01/01/25 09:14 DC 01/01/25 09:46 Ondansetron HCl (Zofran) 4 mg ONCE ONCE IV 01/01/25 08:15 01/01/25 08:16 DC 01/01/25 09:51 Morphine Sulfate 4 mg ONCE ONCE IV 01/01/25 08:15 01/01/25 08:16 DC 01/01/25 09:52 CT Abd/Pel: FINDINGS: There is a 4 mm calculus in the distal right ureter proximal to the UVJ. There is right hydroureteronephrosis. There is no evidence of a renal calculus. There is no left hydronephrosis. Theliver, gallbladder, pancreas, adrenal glands, and spleen appear within normal limits. There is no evidence of abdominal lymphadenopathy. There is no free fluid or free air. The stomach grossly appears unremarkable. The small and large bowel loops demonstrate normal caliber. The abdominal aorta and IVC appear within normal limits. The bladder appears within normal limits the degree of distention. Pelvic orga ns is unremarkable. There is no evidence of a pelvic mass or lymphadenopathy. There is no free fluid collection. Lung bases are clear. There is no acute osseous abnormality. IMPRESSION: 1. 4 mm calculus in the distal right ureter with right hydroureteronephrosis. Time of 1ST Reevaluation: 11:44 Reevaluation 1ST: Unchanged Patient Education/Counseling: Diagnosis, Treatment Family Education/Counseling: No Family Present Additional Information I reviewed the following notes from patient's past medical encounters: 09/30/24 for UTI The following tests were ordered, and results were reviewed by me: CT Abd/Pel W/ IV Con, CBC, BMP, UA, Preg Urine I reviewed and agreed with the following test results read by other providers: CT Abd/Pel W/ IV Con Additional Information was gathered from interviewing the following independent historians: None I discussed treatment and results with medical personnel. Departure 1 Departure Time of Disposition: 11:39 (Patient presented with abdominal pain that was concerning for possible appendicits, gastritis, cholecystitis, colitis, gastroenteritis, or orther possible surgical emergency. Data: 1. I ordered and reviewed the result of at least 3 labs including a CBC, BMP, and Urinalysis. 2. I independently interpreted the following tests: CT Abdoment and Pelvis is concerning for ureteral colic .Risk:This patient has a high risk of morbidity due to further diagnostic testing or treatment and may suffer from an acute abdominal process disorder. Fortunately workup reveals renal colic and patient can be safely discharged to home with outpatient follow up.) Impression: Primary Impression: Ureteral colic Additional Impression: Flank pain Disposition: HOME / SELF CARE / HOMELESS Condition: Stable Referrals: JAKY MARTINEZ MD Additional Instructions: You have a kidney stone. You were prescribed flomax. Please take as directed. For pain you can take the followinam: Ibuprofen 400mg with food Noon: Acetaminophen 1000mg 4pm: Ibuprofen 400mg with food 8pm: Acetaminophen 1000mg You were prescribed oxycodone to take as needed for breakthrough pain. Please take as directed. You should follow up with your regular doctor or a urologist within one week to ensure you are doing better. If your symptoms worsen or you have any other concerns then please return to the ER. e-Prescriptions Oxycodone HCl (Oxycodone Hydrochloride) 5 Mg Tab 5 MG PO QID PRN for 4 Days, #16 TAB Prov: ANN-MARIE ARCINIEGA MD 01/01/25 Tamsulosin Hcl (Flomax) 0.4 Mg Cap 1 CAP PO DAILY for 14 Days, #30 CAP 11 Refills Prov: ANN-MARIE ARCINIEGA MD 01/01/25 Discharged With: Self Critical Care Note Critical Care Time?: No Stability Stability form required: No Heart Score Heart Score: Heart Score Response (Comments) Value History N/A 0 EKG N/A 0 Age N/A 0 Risk Factors N/A 0 Troponin N/A 0 Total 0 I personally scribed for ANN-MARIE ARCINIEGA MD ([email or web address]) on 01/01/25 at 10:46. Electronically submitted by Juno Chamberlain ([email or web address]). ANN-MARIE ARCINIEGA MD Jan 01, 2025 10:46
[2025-01-01] MEDS ORDERED: OXYC-900 PO (11:40)
[2025-01-01] MEDS ORDERED: TAMS-35 PO (11:40)
[2025-01-01] MEDS: TAMSULOSIN HYDROCHLORIDE 0.4 MG CAP PO ONE (11:52)
[2025-01-01] MEDS: KETOROLAC TROMETH 30 MG/ML 1ML VIAL IV ONE (11:53)
[2025-01-01 12:31] VITALS: BP 134/78; PULSE 78; RESP 16; TEMP 98.7; O2SAT 98
== END 2025-01-01 12:32 | disposition home or self-care (01) ==
LOC: ER 07:44
DX: N20.1 Calculus of ureter (principal); Z79.1 Long term (current) use of non-steroidal anti-inflammatories (NSAID); Z87.440 Personal history of urinary (tract) infections; Z79.899 Other long term (current) drug therapy
CPT/HCPCS: 36415; 74177; 80048; 81001; 81025; 85025; 96361; 96374; 96375; 99285; J1885; J2270; J2405; J7030; Q9967